=== PATIENT | female | born 1955 | race Caucasian/White ===

== ENCOUNTER 2019-03-27 08:12 | Day surgery (SDC) | payer BC, SELFPAY ==
[2019-03-27 09:02] VITALS: BP 133/74; PULSE 90; RESP 18; TEMP 36.6; O2SAT 100; BMI 21.5
[2019-03-27] MEDS: Lactated Ringers 1,000 ML 100 ML IV (09:17)
--- NOTE | 2019-03-27 09:22 | DCINST_ITS ---
Discharge Diet: No Restrictions Discharge Activity: May not drive while taking narcotic pain medications. May resume sexual activity in: 1 week Call your doctor if you observe: Fever of 101 or Higher, Inability to urinate, Inability to have a bowel movement, Calf discomfort, Uncontrolled pain Allergies/Adverse Reactions: Allergies haloperidol Allergy (Verified 03/27/19 08:57) Other SEVERE AGITATION ondansetron [From Zofran] Allergy (Verified 03/20/19 15:03) Other HALLUCINATIONS prednisone Allergy (Verified 03/20/19 15:03) Other HALLUCINATIONS IV CONTRAST DYE Allergy (Uncoded 03/20/19 15:03) Other Medications to take at Discharge Ibuprofen [Advil] 200 mg PO Q4H PRN PRN 03/20/19 Primary Care Physician: SYLVIA PONCE [Other] Test Results: Test results from this visit will be discussed in further detail at your follow- up appointment, if applicable. Please Follow Up With: Mayi Vizcarra MD When: call office for appt to be seen next week Proposed Discharge Date: 03/27/19
--- NOTE | 2019-03-27 09:23 | PCM.OPRPT ---
Problem List (1) Erythematous bladder mucosa Status: Acute Report of Operation Date of Procedure: 03/27/19 Pre-Operative Diagnosis: bladder mucosal lesion of unceratin malignant potential Post-Operative Diagnosis: same Surgery/Procedure Performed:: cystoscopy, bladder biopsy Type of Anesthesia:: MAC Specimen's removed: bladder biopsy Description of Procedure: The patient is a 64-year-old female who has been having bladder pain and dysuria and underwent a cystoscopy in the office revealing an approximately 1 cm area on the bladder neck of raised bladder mucosa. After discussing risks benefits and alternatives, she agreed to proceed with surgical removal under anesthesia. Informed consent was obtained. She was taken to the operating room and placed on the operating room table anesthesia monitored the head, neck, airway, IV access and vital signs throughout the case. Once anesthesia was appropriately administered, the patient was placed into dorsal lithotomy position was prepped and draped in usual sterile fashion. The urethra was intubated with a 70 degree 21 [place] cystoscope. The lesion identified in the office was once again visualized. Immediately adjacent to this lesion was a smaller 5 mm lesion. Both areas were biopsied and fulgurated for hemostatic control and tissue treatment. No other areas of concern were seen. The patient's bladder was emptied and the case was terminated. The patient tolerated the procedure well and there were no complications. She was taken to the recovery room in good condition. Grafts/Implants Used: none - Complications none - Admit VTE Documentation VTE Present on Admission: Yes VTE Mechan Device Prophylaxis: SCD's VTE Pharm Prophylaxis ordered?: No Reason prophylaxis not ordered:: Treatment Not Indicated
--- NOTE | 2019-03-27 09:45 | BLA_PTH ---
PATIENT: MIKAL RAMOS LOC: [facility] [place] U#:[id number] AGE/SX: 64/F ROOM: RE03/27/[address]: Dr. Mayi Vizcarra MD : [id number] BED: DIS: 03/27/2019 SPEC #: [id number] RECD: 03/27/19 11:18 STATUS: ROBERTO MANCILLASam #: [id number] JADE: 03/27/19 09:[address]: Mayi Vizcarra DEPT: SURGICAL PATHOLOGY RECD BY: Carrington Perez Tissues: Urinary bladder, NOS Procedures: Surgery Specimen Level IV HEADER OPERATION: Cysto, bladder biopsy PRE-OP DIAGNOSIS: Erythematous bladder mucosa TISSUE SUBMITTED: Bladder biopsy MICROSCOPIC DIAGNOSIS Bladder, biopsy: Fragments of urothelial mucosa with chronic inflammation. Diffuse changes consistent with cystitis cystica. Negative for malignancy. See comment. LANDON:red 03/28/19 COMMENT Detrusor muscle is not present in the specimen. Correlation with clinical, cystoscopy findings and appropriate follow up are necessary. Case has been reviewed in consultation with Dr. Herman who concurs with the above diagnosis. IDC:AM MICROSCOPIC DESCRIPTION Slides are reviewed. GROSS DESCRIPTION Received in fixative is one container labeled with the patient's name and designated bladder biopsy. The specimen consists of three irregular fragments of light charles soft tissue that in aggregate measure 0.4 x 0.2 x 0.1 cm. The specimen is totally submitted in one cassette. / SJ:rg 03/27/19 TC:3 CPT: 42193
[2019-03-27] MEDS: Cefazolin 2 GM in 0.9% Normal Saline 100 ML IV (10:01)
[2019-03-27 10:21] VITALS: BP 115/73; BP 133/74; PULSE 93; RESP 16; TEMP 37.1; O2SAT 97
[2019-03-27 10:25] VITALS: BP 123/73; BP 133/74; PULSE 92; RESP 16; O2SAT 96
[2019-03-27 10:30] VITALS: BP 125/71; BP 133/74; PULSE 96; RESP 16; O2SAT 98
[2019-03-27 10:35] VITALS: BP 126/74; BP 133/74; PULSE 96; RESP 16; TEMP 36.8; O2SAT 98
[2019-03-27 11:33] VITALS: BP 133/74
== END 2019-03-27 11:42 | disposition home or self-care (01) ==
LOC: SDC 08:20 → AC 08:26
PROVIDERS: Referring Provider Urology; Visit Provider Urology
PROC: 0TJB8ZZ Inspection of Bladder, Via Natural or Artificial Opening Endoscopic (ICD-10-PCS; CPT 52000; principal; 2019-03-27 09:30)
DX: N32.89 Other specified disorders of bladder (principal); Z78.0 Asymptomatic menopausal state
CPT/HCPCS: 00910; 52204; 88305; J7120; J2405